=== PATIENT | female | born 1940 | race Caucasian/White ===

== ENCOUNTER 2023-12-15 23:27 | Emergency (ER) | payer MEDICARE, SELFPAY ==
[2023-12-15 23:30] VITALS: BP 163/71; PULSE 76; RESP 20; TEMP 36.6; O2SAT 99; BMI 21.2
--- NOTE | 2023-12-15 23:31 | ED_ITS ---
Discharge Plan Disposition Patient Disposition: Home, Self-Care Referrals Follow up/Referrals: Cody Bellamy MD [Primary Care Provider] - See instructions Activity Restrictions/Add. Instructions Additional Instructions/Restrictions: Please follow-up with your primary care provider. Please return to the emergency department if you develop any new or worsening symptoms or become concerned for your health. Clinical Impressions Clinical Impression: Skin tear of left hand without complication Qualifiers: Encounter type: initial encounter Qualified Code(s): S61.412A - Laceration without foreign body of left hand, initial encounter Instructions Patient Instructions: DI for Laceration Repair Discharge ED Provider: Yogi Marrufo General Adult HPI General Chief complaint: Wound/Laceration Stated complaint: cut on left hand Time Seen by Provider: 12/15/23 23:30 History of Present Illness HPI narrative: 83-year-old female presents with injury to left hand. She reports she was kicked by a baby miniature donkey. She reports it does not hurt, but the skin tore on the dorsum of the hand. She denies any pain with range of motion, denies any numbness tingling or significant bleeding. Related Data Allergies Allergy/AdvReac Type Severity Reaction Status Date / Time No Known Allergies Allergy Verified 12/15/23 23:53 [facility] Disclaimer: The information contained in this section may have been updated after the patient was seen, as this information can be updated by other users. Social History Smoking Status: Never smoker alcohol intake: never current occupational status: retired Travel in the last 8 weeks: None ROS Obtained: Yes All systems reviewed & no additional complaints except as documented Physical Exam General General appearance: alert and in no apparent distress Head Head exam: atraumatic and normocephalic Eye Eye exam: Present normal appearance, PERRL and EOMI ENT ENT exam: Present normal oropharynx and normal external ear exam Neck Neck exam: Present normal inspection and full ROM Chest Chest inspection: Present normal inspection and symmetric chest wall rise; Absent tenderness Respiratory Respiratory exam: Present normal lung sounds bilaterally; Absent respiratory distress Cardiovascular Cardiovascular exam: Present regular rate and normal rhythm Abdominal Exam Abdominal exam: Present soft; Absent distention, tenderness or guarding Extremities Exam Extremities exam: Present other (Semilunar approximately 3 cm skin tear on the dorsum of the left hand. Hemostatic. No gross contamination. No bony tenderness, normal neurovascular ligamentous exam.); Absent edema or joint swelling Back Exam Back exam: Present normal inspection; Absent tenderness Neurological Exam Neurological exam: Present alert and oriented X3; Absent motor sensory deficit Psychiatric Psychiatric exam: Present normal affect and normal mood Skin Skin exam: Present warm, dry and normal color Lymphatic Lymphatic Findings: no adenopathy Medical Decision Making Medical Records Medical records reviewed: Yes I reviewed the patient's medical records. Luis Enrique Inquiry Pt receiving controlled substance: No Luis Enrique was queried for this patient: No Vital Signs: 12/15/23 23:30 Temperature 97.8 F Temperature Source Oral Pulse Rate [Right] 76 Respiratory Rate 20 Blood Pressure [Right Arm] 163/71 H Blood Pressure Mean [Right Arm] 101 Blood Pressure Source [Right Arm] Automatic Cuff Blood Pressure Position [Right Arm] Sitting 02 Sat by Pulse Oximetry 99 Oxygen Delivery Method Room Air Lab Data Lab results reviewed: Yes I reviewed the patient's lab results. Orders (Tests/Meds): ED MEDICATIONS Discontinued Medications Generic Name Dose Route Start Last Admin Trade Name Freq PRN Reason Stop Dose Admin Tetanus/Reduced Diphtheria/Acell Pertussis 0.5 ml 12/15/23 23:46 Tet/Diphth/Pert-Adult 0.5ml Syringe IM 12/15/23 23:47 .ONCE ONE ORDERS Category Date Time Status Hand XR left minimum 3 views [XR hand LT min 3V] Stat Exams 12/15/23 23:36 Taken Medical Decision Narrative: 83-year-old female presents with left hand skin tear after being kicked by baby miniature donkey. History was obtained via interactive discussion with patient family. On arrival, patient is [afebrile, hemodynamically stable, satting appropriately, alert, oriented x4, GCS 15], moving all extremities spontaneously. Full physical exam performed and significant for skin tear as discussed above Differential includes but is not limited to fracture, dislocation, laceration, ligamentous injury. Patient was given tetanus shot for symptomatic management and correction of underlying abnormalities. Workup initiated including radiographs of left hand. On re-evaluation, patient [remains afebrile, HD stable.] Imaging independently interpreted by me and significant for no acute fracture or dislocation.. See radiology read for full review of final results. Suturing was considered, but deemed unnecessary due to skin tear. The wound was closed with Steri-Strips after being cleaned thoroughly with water and Hibiclens. Patient was discharged in stable condition with return precautions.. Procedures Risk/Benefits of Procedure(s) Were Explained: Yes Critical Care Critical Care Time Critical Care Time: No
--- NOTE | 2023-12-15 23:36 | XR_ITS ---
PROCEDURE INFORMATION: Exam: XR Left Hand Exam date and time: 12/15/2023 11:47 PM Age: 83 years old Clinical indication: Injury or trauma; Other: Kicked in hand by donkey; Laceration; Left TECHNIQUE: Imaging protocol: Radiologic exam of the left hand. Views: 3 or more views. COMPARISON: No relevant prior studies available. FINDINGS: Bones/joints: No acute fracture or malalignment. Osteoarthritis. Soft tissues: Suspected soft tissue injury at the ulnar aspect of the hand near the distal 5th metacarpal. IMPRESSION: No acute osseous findings.
--- NOTE | 2023-12-16 00:06 | PC.NURSE ---
Dr. Marrufo at bedside, wound steri-stripped and dressing applied.
[2023-12-16] MEDS: TET/DIPHTH/PERT-ADULT 0.5ML SYRINGE 0.5 ML IM (00:09)
[2023-12-16 00:23] VITALS: BP 170/65; PULSE 80; RESP 20; TEMP 36.6; O2SAT 99
== END 2023-12-16 00:27 | disposition home or self-care (01) ==
PROVIDERS: Emergency Provider Emergency Medicine; PCP Internal Medicine Adolescent Medicine
DX: S61.402A Unspecified open wound of left hand, initial encounter (principal); W55.82XA Struck by other mammals, initial encounter; Z23 Encounter for immunization
CPT/HCPCS: 73130; 90471; 90715; 99283